=== PATIENT | male | born 1965 | race Caucasian/White ===

== ENCOUNTER 2016-09-10 22:01 | Emergency (ER) | payer MEDICAID ==
[~2016-09-10] VITALS: Ht 167.6 cm; Wt 72.6 kg
[2016-09-10 22:24] VITALS: BP 150/94
[2016-09-10] MEDS ORDERED: TDAP [DIPH/PERTUSSIS/TET] 0.5 ML VIAL IM ONE ×2 (22:30→23:08)
[2016-09-10] MEDS ORDERED: LIDOCAINE 2%-EPI 1:100,000 30 ML VIAL TP ONE (22:30)
[2016-09-10] MEDS ORDERED: LIDOCAINE 2%-EPI 1:100,000 30 ML VIAL ONE (22:48)
== END 2016-09-10 23:20 | disposition home or self-care (01) ==
LOC: ER 22:06
DX: S61.012A Laceration without foreign body of left thumb without damage to nail, initial encounter (principal); W26.0XXA Contact with knife, initial encounter; Y93.89 Activity, other specified; Y92.090 Kitchen in other non-institutional residence as the place of occurrence of the external cause; Y99.8 Other external cause status
CPT/HCPCS: 90715; A4606; A6402; J3490; Z7610

== ENCOUNTER 2016-09-21 12:58 | Emergency (ER) | payer MEDICAID ==
[~2016-09-21] VITALS: Ht 175.3 cm; Wt 74.8 kg
--- NOTE | 2016-09-21 13:29 | NUR ---
PT CALLED TO TRIAGE, PT NOT IN WAITING ROOM
[2016-09-21 13:35] VITALS: BP 134/77
[2016-09-21] MEDS ORDERED: BACI/NEOM/POLY B OINT PKT 1 UDPKT PACKET TP ONE (14:00)
== END 2016-09-21 14:04 | disposition home or self-care (01) ==
LOC: ER 12:59
DX: S61.412D Laceration without foreign body of left hand, subsequent encounter (principal)
CPT/HCPCS: A4606; Z7610